=== PATIENT | female | born 1955 | race Hispanic/Latino ===

== ENCOUNTER 2017-02-11 09:28 | Outpatient (CLI) | payer BC | END 2017-02-11 09:29 | disposition home or self-care (01) | LOC: BICULT 09:28 | PROVIDERS: ATTEND Nurse Practitioner Family | DX: Z00.00 Encounter for general adult medical examination without abnormal findings (principal) ==

== ENCOUNTER 2017-05-26 08:46 | Outpatient (CLI) | payer BC | END 2017-05-26 08:47 | disposition home or self-care (01) | LOC: BICMAMMO 08:46 | PROVIDERS: ATTEND Internal Medicine Gastroenterology | DX: Z13.820 Encounter for screening for osteoporosis (principal); K74.3 Primary biliary cirrhosis; R10.13 Epigastric pain; K21.9 Gastro-esophageal reflux disease without esophagitis; M85.88 Other specified disorders of bone density and structure, other site | CPT/HCPCS: 77080 ==

== ENCOUNTER 2017-06-30 10:12 | Outpatient (CLI) | payer BC | END 2017-06-30 10:13 | disposition home or self-care (01) | LOC: BICULT 10:12 | PROVIDERS: ATTEND Internal Medicine Gastroenterology | DX: R14.0 Abdominal distension (gaseous) (principal) | CPT/HCPCS: 76700 ==

== ENCOUNTER 2019-07-25 13:25 | Outpatient (CLI) | payer BC ==
[2019-07-25 14:01] LABS: Estimated GFR-MDRD - POC Greater than 90
[2019-07-25] MEDS ORDERED: Iopamidol-370 76% 500 ML 1 ML ONE (15:16)
--- NOTE | 2019-07-25 16:43 | CT ---
CT CHEST WITH IV CONTRAST: 07/25/19 HISTORY: Chest pain, shortness of breath. FINDINGS: No evidence of mediastinal, hilar or axillary mass or lymphadenopathy seen. There is good opacificati on of the thoracic aorta without dissection or aneurysm. No pleural or pericardial effusions are note d. No pneumothoraces, focal areas of consolidation, lung nodules or masses are seen. The tracheobronc hial tree is patent. There are mild degenerative changes in the spine. Upper abdominal tomograms demo nstrate fatty infiltration of the liver and a 6 mm low density lesion in the left lobe which is too s mall to characterize but statistically likely to represent a benign finding in the absence of known m alignancy. There are postop changes of cholecystectomy. IMPRESSION: 1. No evidence of significant intrathoracic abnormalities. 2. Fatty liver. 3. Tiny low density lesion in the liver, too small to characterize; likely to represent a benign finding in the absence of known malignancy. POS: [facility]
== END 2019-07-25 13:26 | disposition home or self-care (01) ==
LOC: BICCT 13:25
PROVIDERS: ATTEND Internal Medicine Gastroenterology
DX: R06.02 Shortness of breath (principal); K74.3 Primary biliary cirrhosis; K76.0 Fatty (change of) liver, not elsewhere classified; K76.9 Liver disease, unspecified; Z86.010 Personal history of colon polyps
CPT/HCPCS: 71260; 82565; Q9967

== ENCOUNTER 2022-02-09 07:40 | Outpatient (CLI) | payer BC | END 2022-02-09 07:41 | disposition home or self-care (01) | LOC: BICULT 07:40 | PROVIDERS: ATTEND Internal Medicine Gastroenterology | DX: K74.3 Primary biliary cirrhosis (principal) | CPT/HCPCS: 76705 ==

== ENCOUNTER 2022-02-25 13:21 | Outpatient (CLI) | payer BC | END 2022-02-25 13:22 | disposition home or self-care (01) | LOC: MRI 13:21 | PROVIDERS: ATTEND Neurological Surgery | DX: D33.2 Benign neoplasm of brain, unspecified (principal); G93.9 Disorder of brain, unspecified; Z98.890 Other specified postprocedural states | CPT/HCPCS: 70553 ==

== ENCOUNTER 2023-08-31 14:41 | Outpatient (CLI) | payer BC | END 2023-08-31 14:42 | disposition home or self-care (01) | LOC: BICMAMMO 14:41 | PROVIDERS: ATTEND Specialist | DX: Z12.31 Encounter for screening mammogram for malignant neoplasm of breast (principal) | CPT/HCPCS: 77063; 77067 ==

== ENCOUNTER 2023-12-17 14:46 | Outpatient (CLI) | payer BC | END 2023-12-17 14:47 | disposition home or self-care (01) | LOC: BICMAMMO 14:46 | PROVIDERS: ATTEND Specialist | DX: Z13.820 Encounter for screening for osteoporosis (principal); M85.89 Other specified disorders of bone density and structure, multiple sites | CPT/HCPCS: 77080 ==

== ENCOUNTER 2024-03-12 08:12 | Emergency (ER) | payer BC ==
[2024-03-12] MEDS ORDERED: Fluorescein Opthalmic Strip ONE (08:33)
[2024-03-12] MEDS ORDERED: Proparacaine 0.5% Opth 15 ML BOT ONE ×2 (08:34→12:15)
[2024-03-12] MEDS ORDERED: Dexamethasone 10 MG/ML VIAL ONE (08:57)
[2024-03-12] MEDS ORDERED: Ketorolac Tromethamine 30 MG (1 mL) VIAL ONE (08:57)
[2024-03-12 09:24] LABS: #Basophils 0.04 10x3/uL (0.0-0.2); %Basophils 0.4 % (0.0-1.0); %Eosinophils 3.2 % (0.0-10.0); %Lymphocytes 17.2 % (21.0-51.0); %Monocytes 8.6 % (0.0-10.0); %Neutrophils 70.2 % (42.0-75.0); Hemoglobin 13.5 g/dL (12.0-16.0); Mean Corpuscular HGB CONC 34.6 g/dL (32.0-36.0); Mean Corpuscular Volume 80.9 fL (78.0-98.0); Mean Platelet Volume 10.3 fL (7.4-10.4); Platelet Count 196 10x3/uL (130-400); RBC Distribution Width 12.4 % (11.5-14.5); Red Blood Cell (RBC) Count 4.82 mill/uL (4.20-5.40)
[2024-03-12 09:43] LABS: ALT (SGPT) 12 U/L (8-55); AST (SGOT) 15 U/L (5-34); Albumin 3.1 g/dL (3.4-4.8); Alkaline Phosphatase 125 U/L (40-110); Anion Gap 10 mmol/L (10-20); BUN (Urea Nitrogen) 7 mg/dL (9.8-20.1); Bilirubin, Total 0.8 mg/dL (0.2-1.2); Calc. Creatinine Clearance 0 mL/min (70-130); Calcium 8.7 mg/dL (7.8-10.44); Carbon Dioxide 23 mmol/L (23-31); Chloride 109 mmol/L (98-107); Estimated GFR 101; Globulin 3.2 g/dL (2.4-3.5); Glucose 100 mg/dL (80-115); Potassium 3.3 mmol/L (3.5-5.1); Protein, Total 6.3 g/dL (5.8-8.1); Sodium 139 mmol/L (136-145)
== END 2024-03-12 12:12 | disposition home or self-care (01) ==
LOC: ERS 08:12
DX: H04.302 Unspecified dacryocystitis of left lacrimal passage (principal); E78.00 Pure hypercholesterolemia, unspecified; E03.9 Hypothyroidism, unspecified; Z79.899 Other long term (current) drug therapy
CPT/HCPCS: 36415; 70481; 80053; 85025; 96374; 96375; J1100; J1885

== ENCOUNTER 2025-02-27 11:17 | Outpatient (CLI) | payer BC | END 2025-02-27 11:18 | disposition home or self-care (01) | LOC: BICMAMMO 11:17 | PROVIDERS: ATTEND Specialist | DX: Z12.31 Encounter for screening mammogram for malignant neoplasm of breast (principal); Z80.3 Family history of malignant neoplasm of breast; R92.333 Mammographic heterogeneous density, bilateral breasts | CPT/HCPCS: 77063; 77067 ==